=== PATIENT | male | born 1945 | race Caucasian/White ===

== ENCOUNTER 2021-05-01 06:57 | Day surgery (SDC) | payer MEDICARE, BC ==
[2021-04-30 15:26] LABS: BASOPHILS % (AUTO) 0.7 % (0-1); EOSINOPHILS # (AUTO) 0.2 X10'3 (0-0.9); EOSINOPHILS % (AUTO) 3.8 % (0-6); HEMATOCRIT 42.5 % (42.0-52.0); HEMOGLOBIN 14.3 g/dl (14.0-17.9); LYMPHOCYTES # (AUTO) 1.2 X10'3 (1.1-4.8); LYMPHOCYTES % (AUTO) 24.7 % (21-51); MEAN CORPUSCULAR HEMOGLOBIN 32.5 PG (27.0-31.0); MEAN CORPUSCULAR HGB CONC 33.7 g/dL (33.0-36.5); MEAN CORPUSCULAR VOLUME 96.3 FL (78-98); MEAN PLATELET VOLUME 8.7 FL (7.4-10.4); MONOCYTES # (AUTO) 0.6 X10'3 (0-0.9); MONOCYTES % (AUTO) 12.9 % (2-12); NEUTROPHILS # (AUTO) 2.9 X10'3 (1.8-7.7); NEUTROPHILS % (AUTO) 57.9 % (42-75); PLATELET COUNT 263 X10'3 (140-440); RED BLOOD COUNT 4.42 X10'6 (4.70-6.10)
[2021-04-30 15:34] LABS: ALANINE AMINOTRANSFERASE 53 U/L (12-78); ALBUMIN 3.7 G/DL (3.4-5.0); ALBUMIN/GLOBULIN RATIO 1.1 (1.1-1.5); ALKALINE PHOSPHATASE 97 IU/L (46-116); ANION GAP 11 (8-16); ASPARTATE AMINO TRANSFERASE 29 U/L (10-37); BILIRUBIN,TOTAL 0.5 MG/DL (0.1-1.0); BLOOD UREA NITROGEN 17 MG/DL (7-18); BUN/CREATININE RATIO 16.7 (5.4-32.0); CHLORIDE 106 MMOL/L (99-107); CREATININE 1.02 MG/DL (0.60-1.10); GLUCOSE 180 MG/DL (70-104); POTASSIUM 3.6 MMOL/L (3.5-5.1); SODIUM 144 MMOL/L (135-145); TOTAL CARBON DIOXIDE 26.8 MMOL/L (24-32); TOTAL PROTEIN 7.2 G/DL (6.4-8.2); eGFR 71 ML/MIN
[~2021-05-01] VITALS: Ht 188 cm; Wt 98.7 kg
[2021-05-01] MEDS ORDERED: MIDAZolam 1mg/ml 10ml vial IV ONE (07:25)
[2021-05-01] MEDS ORDERED: atropine 0.1mg/ml 10ml syringe IV ONE (07:25)
[2021-05-01] MEDS ORDERED: diphenhydrAMINE 25mg capsule PO ONE (07:25)
[2021-05-01] MEDS ORDERED: normal saline 1000ml 1,000 ML IV SCH (07:25)
[2021-05-01] MEDS ORDERED: morphine 10mg/ml inj. IV ONE (07:25)
[2021-05-01] MEDS ORDERED: amiodarone 150mg/dext, iso-os 100 ML IV ONE (07:25)
[2021-05-01] MEDS ORDERED: LORazepam 0.5 MG tablet PO ONE (07:25)
[2021-05-01] MEDS ORDERED: AMA1T PO (07:35)
[2021-05-01] MEDS ORDERED: METF-900 PO (07:35)
[2021-05-01] MEDS ORDERED: NITR0.4T48 SL (07:35)
[2021-05-01] MEDS ORDERED: METO1TAB25 PO (07:35)
[2021-05-01] MEDS ORDERED: SOTA80TA73 PO (07:35)
[2021-05-01] MEDS ORDERED: AMIO200T61 PO (07:35)
[2021-05-01] MEDS ORDERED: ATOR10TA87 PO (07:35)
[2021-05-01] MEDS ORDERED: APIX2.5T PO (07:35)
[2021-05-01] MEDS ORDERED: LOSA1TAB39 PO (07:35)
[2021-05-01] MEDS ORDERED: KEN0.1O TP (07:35)
[2021-05-01 07:57] VITALS: BP 151/94
--- NOTE | 2021-05-01 10:04 | NUR ---
Dr. Morton at bedside. Procedure cancelled as patient is in NSR. Pt dc'd to home with all belongings.
== END 2021-05-01 10:07 | disposition home or self-care (01) ==
LOC: SSTAY O 06:57
PROVIDERS: ATTEND Internal Medicine Cardiovascular Disease
DX: I48.0 Paroxysmal atrial fibrillation (principal); Z53.8 Procedure and treatment not carried out for other reasons; I25.10 Atherosclerotic heart disease of native coronary artery without angina pectoris; I10 Essential (primary) hypertension; I05.0 Rheumatic mitral stenosis; E11.9 Type 2 diabetes mellitus without complications; Z79.84 Long term (current) use of oral hypoglycemic drugs; Z79.899 Other long term (current) drug therapy; Z95.0 Presence of cardiac pacemaker
CPT/HCPCS: 36415; 80053; 85025; 85610; 93005